=== PATIENT | male | born 1970 | race African-American/Black ===

== ENCOUNTER 2016-12-12 16:44 | Emergency (ER) | payer OTHER ==
[~2016-12-12 16:44] MED LIST: METF500T PO
[2016-12-12 17:14] VITALS: BP 166/99
[2016-12-12] MEDS ORDERED: NYST30PO9 TP (18:47)
[2016-12-12] MEDS ORDERED: LIDO20SO PO (18:47)
[2016-12-12] MEDS ORDERED: AMOX875T PO (18:47)
--- NOTE | 2016-12-12 18:47 | PHYS DOC ---
Past Medical History Past Medical History: Diabetes-Type II, Hypertension, Other Additional Past Medical Histor: back pain Past Surgical History: No Surgical History Alcohol Use: Occasionally Drug Use: None Adult General Chief Complaint Chief Complaint: OTHER COMPLAINTS HPI HPI Patient is a 46 year old male with history of hypertension and diabetes type 2 who presents today with sore throat and enlarged tonsils for 2 days. Patient denies any coughing or congestion. Patient is also complaining of right foot swelling specifically between his toes that he noted for couple days. Patient denies any fever. Patient states his blood sugars are well controlled with metformin and glipizide. Review of Systems Review of Systems Constitutional: See history of present illness Eyes: Denies change in visual acuity, redness, or eye pain [] HENT: Enlarged tonsils and sore throat [] Respiratory: See history of present illness Cardiovascular: No additional information not addressed in HPI [] GI: Denies abdominal pain, nausea, vomiting, bloody stools or diarrhea [] : Denies dysuria or hematuria [] Musculoskeletal: Denies back pain or joint pain [] Integument: Pain between his toes Neurologic: Denies headache, focal weakness or sensory changes [] Endocrine: Denies polyuria or polydipsia [] Allergies Allergies Allergies Coded Allergies Type Severity Reaction Last Updated Verified No Known Drug Allergies 08/10/15 No Physical Exam Physical Exam Constitutional: Well developed, well nourished, no acute distress, non-toxic appearance. [] HENT: Normocephalic, atraumatic, bilateral external ears normal, oropharynx moist, no oral exudates, nose normal. [] +2 tonsils with mild erythema, no exudate +2 anterior cervical adenopathy midline uvula Eyes: PERRLA, EOMI, conjunctiva normal, no discharge. [] Neck: Normal range of motion, no tenderness, supple, no stridor. [] Cardiovascular:Heart rate regular rhythm, no murmur [] Lungs & Thorax: Bilateral breath sounds clear to auscultation [] Abdomen: Bowel sounds normal, soft, no tenderness, no masses, no pulsatile masses. [] Skin: Right foot with small amount of swelling on the second third and fourth toes. The webspaces between the second third and fourth toes are wet and macerated consistent with a yeast infection. +2 bilateral pedal pulses. Cap refill less than 2 seconds. Back: No tenderness, no CVA tenderness. [] Extremities: No tenderness, no cyanosis, no clubbing, ROM intact, no edema. [] Neurologic: Alert and oriented X 3, normal motor function, normal sensory function, no focal deficits noted. [] Psychologic: Affect normal, judgement normal, mood normal. [] Current Patient Data Vital Signs Vital Signs Date Time Temp Pulse Resp B/P Pulse Ox O2 Delivery O2 Flow Rate FiO2 12/12/16 17:14 98.6 93 18 166/99 98 Room Air 98.6 EKG EKG [] Radiology/Procedures Radiology/Procedures [] Course & Med Decision Making Course & Med Decision Making Pertinent Labs and Imaging studies reviewed. (See chart for details) Patient is in the ED with tonsillitis and tinea pedis. Discharged with amoxicillin and nystatin powder. Blood sugar was in the 130s in the ED. He has diabetes. Instructed to follow-up with his own doctor in one week. Recommended he airs his feet as much as he can. Follow-up with his own PCP in one week. Dragon Disclaimer Dragon Disclaimer This electronic medical record was generated, in whole or in part, using a voice recognition dictation system. Departure Departure Impression: Primary Impression: Tinea pedis Additional Impression: Acute tonsillitis Disposition: 01 HOME, SELF-CARE Condition: STABLE Referrals: UNKNOWN PCP NAME (PCP) Patient Instructions: Athlete's Foot, Tonsillitis Additional Instructions: You were seen for tonsillitis athletes feet. Try and air your feet as much as possible. Use the nystatin powder as prescribed. Keep your feet clean and dry. Complete your antibiotics and follow-up with your own doctor in one week. Scripts Lidocaine Hcl (Lidocaine Hcl Viscous)20 Mg/1 Ml Solution5 Ml PO TID #100 ML Prov:KEVIN ROSARIO [employer] 12/12/16 Amoxicillin 875 Mg Tablet1 Tab PO BID #20 TAB Prov:KEVIN ROSARIO [employer] 12/12/16 Nystatin 15 Gm Powder1 Kirk TP BID #1 BOTTLE Ref 1 Prov:KEVIN ROSARIO [employer] 12/12/16 Problem Qualifiers Primary Impression: Tinea pedis Laterality: right Qualified Code: B35.3 - Tinea pedis Additional Impression: Acute tonsillitis Pharyngitis/tonsillitis etiology: unspecified etiology Qualified Code: J03.90 - Acute tonsillitis, unspecified KEVIN ROSARIO APRN Dec 12, 2016 18:47
== END 2016-12-12 23:15 | disposition home or self-care (01) ==
LOC: ER 16:44
DX: J03.90 Acute tonsillitis, unspecified (principal); B35.3 Tinea pedis; E11.9 Type 2 diabetes mellitus without complications; I10 Essential (primary) hypertension
CPT/HCPCS: 82947; 99283